=== PATIENT | female | born 1945 | race Caucasian/White ===

== ENCOUNTER 2016-09-10 21:56 | Emergency (ER) | payer MEDICARE ==
--- NOTE | ~2016-09-10 | ER ---
PATIENT'S NAME: YONAS MALLOY [facility] AGE: 71 Y [address] ROOM: [place] [address] LOCATION: [facility] ADMIT DATE: 09/10/2016 ER/Outpatient Report DISCHARGE DATE: 09/11/2016 FAMILY PHYSICIAN: Odalis Belcher MD ATTENDING PHYSICIAN: Isatu Waters Time of Arrival: 2156 hours. Time of Evaluation: 2210 hours. CHIEF COMPLAINT: Left lower quadrant abdominal pain. HISTORY OF PRESENT ILLNESS: This is a 71-year-old female, who presents to the ER with left lower quadrant abdominal pain. She states it started abruptly around 2 hours ago while she was walking to her car. She states she has never had pain like this before. It is located in her left lower quadrant. It is constant, and it is a dull pain. She states it does make her feel nauseated. She has had no vomiting. No diarrhea. No fever or chills. No troubles with urination. The patient states it does not radiate into her back and just in her left lower quadrant. She denies any other problems at this time. ALLERGIES: NO KNOWN ALLERGIES. MEDICATIONS: Please see medication list in nurse's notes. PAST MEDICAL HISTORY: 1. Recent ear infection. 2. Hypertension. 3. Hypercholesterolemia. 4. Kidney stones. SOCIAL HISTORY: Denies smoking, drug, or alcohol use. REVIEW OF SYSTEMS: A 10-point review of systems was completed and was negative with the exception of those discussed in the HPI. PHYSICAL EXAMINATION: VITAL SIGNS: Height 5 feet stated, weight 66.4 kg taken, blood pressure is 172/88, pulse 109, respirations 20, temperature 98.7 degrees tympanically, saturations 94% on room air. Evelia Coma Score is 15. PATIENT'S NAME: YONAS MALLOY [facility] AGE: 71 Y [address] ROOM: [place] [address] LOCATION: ED ADMIT DATE: 09/10/2016 ER/Outpatient Report DISCHARGE DATE: 09/11/2016 FAMILY PHYSICIAN: Odalis Belcher MD ATTENDING PHYSICIAN: Isatu Waters GENERAL: An alert, calm, well-developed female, in moderate distress. HEENT: Head: Normocephalic. Eyes: Pupils are equal and reactive to light. She does display moist mucous membranes. LUNGS: Clear to auscultation bilaterally. No wheezes or crackles. Normal respiratory effort. HEART: Slightly tachycardic. Normal rhythm. No lifts, thrills, or murmurs. ABDOMEN: Soft. She does have some left lower quadrant abdominal pain with palpation. She has no guarding. No rebound tenderness. EXTREMITIES: No clubbing, cyanosis, or edema. She has full range of motion of all limbs. LABORATORY DATA AND X-RAYS: CBC: White count is 10.5, hemoglobin is 13.0, platelets 331, ANC is 7.7. CMS: Estimated GFR is 55, otherwise unremarkable. Urinalysis: The pH is 7.0, leukocytes negative, nitrites negative. UA micro: White blood cells 0- 2, red blood cells 10-20, epithelial 0-2, bacteria few. CT scan was done per stone protocol does show moderate left-sided hydronephrosis related to ureterovesical calculus, measuring 3.5 mm. She does have some renal edema with this as well. She also has an incidental finding of some clustered pulmonary nodules, most likely related to an old granulomatosis disease. IMPRESSION: 1. Left lower quadrant abdominal pain secondary to kidney stone measuring 3.5 mm. 2. Incidental findings of pulmonary nodules in the right lower lobe. ASSESSMENT AND PLAN: Discussed the patient's care with Dr. Waters. We did start an IV here in the emergency room and did give her some IV fluids and some Zofran for her nausea. The patient refused pain medications even though we asked several times if she would like something. The patient finally agreed to take something around 2 hours into her stay, so we did give her some Toradol 50 mg IV along with some Flomax 0.4 mg p.o. We are going to see how the patient does with this and make a game plan with her. My shift is ending, so I will be turning the care over to Dr. Waters at this time. The patient understands and agrees with care. TERRENCE BOOTHE PA-C FOR MD JAYDEN BENITEZ/jonna /[id number] d: t: 09/18/16 1647, OUTPATIENT REPORT
--- NOTE | ~2016-09-10 | ER ---
PATIENT'S NAME: YONAS MALLOY [facility] AGE: 71 Y [address] ROOM: [place] [address] LOCATION: [facility] ADMIT DATE: 09/10/2016 ER/Outpatient Report DISCHARGE DATE: 09/11/2016 FAMILY PHYSICIAN: Odalis Belcher MD ATTENDING PHYSICIAN: Isatu Sanchez Niko was being seen by EDMUNDO Slaughter. Please refer to her dictation. I did assume care at midnight at shift change. I had reviewed the case throughout the patient's hospital stay with [place]. Her history and physical exam findings were confirmed. The patient had been receiving Toradol, IV fluids, Zofran, and Flomax for pain control. Her pain was rated as a 1/10, although she said she really had not improved a lot, although she was a 7 on arrival. Her pain is in her left lower abdomen. Medications and allergies were reviewed. CT scan showed moderate left-sided hydroureteronephrosis related to ureterovesicular calculus measuring 3.5 mm at the UV junction. Left perinephric inflammatory change and renal edema correlate with urinalysis for the possibility of pyelonephritis. She also has clustered pulmonary nodules, as described nonspecific, but most likely related to old granulomatous disease. She is currently on her second antibiotic for upper respiratory symptoms and those are improved. CBC is within normal limits. UA shows 10 to 20 red cells and 0 to 2 white cells. Chemistry panel is unremarkable. IMPRESSION: 1. Kidney stone. 2. Incidental pulmonary nodules. PLAN: The patient did not want any pain medicine here, she has to drive herself home. She did not want to be admitted for pain control. Kidney stone handout provided. Strain urine. Push fluids. Flomax 0.4 mg 1 p.o. daily, dispensed 3 with 0 refills and this was also called to Jenny. [place] 5/325 one to two p.o. q.4 to 6 hours p.r.n. for pain, dispensed 15 with 0 refills also called to Jenny. Zofran 4 mg 1 p.o. q.6 hours p.r.n. for nausea, dispensed 4 with 0 refills. Follow up with Dr. Brunson or Dr. Belcher in 1 to 2 days. Follow up sooner if any problems or concerns and I also advised that she follow up with Dr. Belcher regarding her pulmonary nodules. The patient understands and agrees, and all questions have been answered. ISATU SANCHEZ MD CAR/modl PATIENT'S NAME: YONAS MALLOY [facility] AGE: 71 Y [address] ROOM: [place] [address] LOCATION: [facility] ADMIT DATE: 09/10/2016 ER/Outpatient Report DISCHARGE DATE: 09/11/2016 FAMILY PHYSICIAN: Odalis Belcher MD ATTENDING PHYSICIAN: Isatu Sanchez /[id number] d: 09/11/16 0344 t: 09/11/16 0454, OUTPATIENT REPORT
[2016-09-10 22:18] LABS: BILIRUBIN URINE NEGATIVE (NEGATIVE); BLOOD URINE 150 /UL (NEGATIVE); COLOR URINE YELLOW (YELLOW); GLUCOSE URINE NEGATIVE (NEGATIVE); KETONE URINE NEGATIVE (NEGATIVE); LEUKOCYTES URINE NEGATIVE /UL (NEGATIVE); NITRITE URINE NEGATIVE (NEGATIVE); PROTEIN URINE 30 mg/dL (NEGATIVE); SPEC GRAVITY URINE 1.015 (1.003-1.035); TURBIDITY URINE CLEAR (CLEAR); UROBILINOGEN URINE NORMAL (NORMAL)
[2016-09-10 22:26] LABS: BACTERIA URINE FEW (NEGATIVE); EPITHELIAL URINE 0-2 #/HPF (NEGATIVE); WBC URINE 0-2 #/HPF (NEGATIVE)
[2016-09-10 22:31] LABS: BASOPHIL # 0.1 K/uL (0.0-0.2); BASOPHIL % 0.5 %; EOSINOPHIL # 0.2 K/uL (0.0-0.5); EOSINOPHIL % 1.6 %; HEMATOCRIT 40.4 % (33.0-46.0); IMMATURE GRANULOCYTE # 0.1 K/uL (0.0-0.3); IMMATURE GRANULOCYTE % 0.9 %; LYMPHOCYTE % 18.9 %; MCH 29.8 pg (27.0-34.0); MCHC 32.2 gm/dL (32.0-36.5); MCV 92.7 fl (83.0-98.0); MONOCYTE # 0.5 K/uL (0.0-1.0); NEUTROPHIL # (ANC) 7.7 K/uL (1.8-7.8); NEUTROPHIL % 73.1 %; NRBC % 0 /100WBC (0-0.00); PLATELET COUNT 311 K/uL (150-450); RBC 4.36 M/uL (3.50-5.50); RDW-CV 12.2 % (11.9-14.6); WBC 10.5 K/uL (4.0-11.0)
[2016-09-10 22:52] LABS: ANION GAP 11.8 (10.0-19.0); CALCIUM 8.7 mg/dL (8.5-10.5); POTASSIUM 3.8 mMol/L (3.7-5.1); TOTAL BILIRUBIN 0.3 mg/dL (0.0-1.5); TOTAL PROTEIN 8.4 g/dL (6.0-8.4)
== END 2016-09-11 00:55 | disposition disaster alternative care site (69) ==
LOC: GMED 21:56
PROVIDERS: Family Medicine
DX: N13.2 Hydronephrosis with renal and ureteral calculous obstruction (principal); R91.8 Other nonspecific abnormal finding of lung field; I10 Essential (primary) hypertension; E78.00 Pure hypercholesterolemia, unspecified
CPT/HCPCS: J1885; J2405; J7030

== ENCOUNTER → 2016-09-16 | Outpatient (CLI) | payer MEDICARE | END | disposition disaster alternative care site (69) | LOC: GBCOE 11:39 | DX: Z12.31 Encounter for screening mammogram for malignant neoplasm of breast (principal) | CPT/HCPCS: G0202 ==

== ENCOUNTER → 2016-09-23 | Outpatient (CLI) | payer MEDICARE | END | disposition disaster alternative care site (69) | LOC: GRAD 13:13 | DX: N20.0 Calculus of kidney (principal); I72.2 Aneurysm of renal artery ==